=== PATIENT | male | born 1975 | race Caucasian/White ===

== ENCOUNTER 2024-12-08 06:23 | Day surgery (SDC) | payer OTHER, SELFPAY | END 2024-12-08 10:16 | disposition home or self-care (01) | LOC: GI 06:23 | PROVIDERS: ATTENDING PHYSICIAN Internal Medicine Gastroenterology | DX: K21.00 Gastro-esophageal reflux disease with esophagitis, without bleeding (principal); K31.7 Polyp of stomach and duodenum | CPT/HCPCS: 43235 ==